=== PATIENT | female | born 1970 | race African-American/Black ===

== ENCOUNTER 2016-08-17 08:56 | Emergency (ER) | payer OTHER ==
[~2016-08-17] VITALS: Ht 152.4 cm; Wt 54.4 kg
--- NOTE | ~2016-08-17 | EKG ---
[address] [address] [place] [address] ELECTROCARDIOGRAM REPORT Name: WICHO RAMIREZ Room #: REG Tiffany#: [id number] Admission: 08/17/16 Attend Phys: Discharge: Date of : 74 Report #: [id number] THIS REPORT FOR: //name// [facility] ED Test Date: 2016-08-17 Test Time: 09:00:36 Pat Name: WICHO RAMIREZ Department: Room: Gender: F Supervisor Publications Production: CAROL : 1970 Requested By: Lin Medrano Order Number: [id number] MD: Denzel Rodriguez Measurements Intervals [place] Rate: 90 P: 73 [place]: 156 QRS: 19 QRSD: 73 T: 46 QT: 349 QTc: 427 Interpretive Statements Sinus rhythm No significant abnormality Compared to ECG 04/29/2016 21:04:14 Ventricular premature complex(es) no longer present Electronically Signed On 08-17-2016 10:24:03 ADVERTISING COPYWRITER by Denzel Rodriguez [email or web address] <ELECTRONICALLY SIGNED> By: Denzel Rodriguez MD, [facility] 08/17/16 1024 0900 9 Denzel Rodriguez MD, FACC /EPI
[~2016-08-17 08:56] MED LIST: ACCUNEB SO1.25 MG/1 INH; ADVAIR HFA 230M12 GM; ADVAIR HFA115 MCG/21; ALBUTEROL INH; AMBIEN 5 MG TABL5 M1 PO; APAP650 PO; CEFDINIR300 MG PO; CLEOCIN HCL300 MG PO; CLINDAMYCI600 MG/50 IVPB; COLACE100 MG PO; FLAGYL500 MG PO; FLUCONAZOL400 MG/205 IVPB; HYDROCODONE-AP1 EAC6 PO; HYZAAR 50-12.51 TAB; IBUPROFEN 800800 M1 PO; IRON325 PO; LEVAQUIN 500 M500 MG PO; LOPRESSOR50 PO; NORCO 5-325 TA1 EACH PO; NORVASC5 M1 PO; NORVASC5 MG PO; NYSTATIN 1100000 U/M SWISH&SPIT; PEPCID20 MG PO; PHENERGAN 25 MG25 M1 PO; PROBIOTIC1 EAC1; PROBIOTIC1 EAC1 PO; SIMETHICON CHEW80 M1 PO; SINGULAIR 10 MG10 M1 PO; SYMBICORT160 MCG/4. INH; SYMBICORT80 MCG/4.1; VENTOLIN HFA 1818 GM; WELLBUTRIN SR150 MG PO; XANAX1 MG PO
[2016-08-17 09:36] LABS: HEMATOCRIT 43.2 % (37.0-47.0); HEMOGLOBIN 14.6 gm/dL (12.0-15.0); MCH 30.8 pg (26.0-34.0); MCHC 33.9 % (28.0-37.0); MCV 90.9 fL (80.0-100.0); PLATELET COUNT 107 thou/uL (150-400); RBC 4.76 mil/uL (4.20-5.00); RDW 13.8 % (10.5-14.5); WBC 4.9 thou/uL (4.0-11.0)
[2016-08-17 09:37] LABS: MANUAL DIFF YES
[2016-08-17 09:45] LABS: CALCIUM 9.2 mg/dL (8.5-10.1); CREATININE 0.9 mg/dL (0.6-1.3); POTASSIUM 3.8 mmol/L (3.5-5.1)
[2016-08-17 09:51] LABS: ALBUMIN 3.8 g/dL (3.4-5.0); TOTAL BILIRUBIN 0.3 mg/dL (<0.1-1.0)
[2016-08-17 09:58] LABS: ABSOLUTE NEUTROPHILS 3.5 thou/uL (1.4-8.2); LARGE PLATELETS RARE; TOTAL CELL COUNT 100
[2016-08-17] MEDS ORDERED: ONDANSETRON HCL4 M2 PO (10:48)
[2016-08-17] MEDS ORDERED: BENTYL 20 MG TA20 M1 PO (10:48)
[2016-08-17] MEDS ORDERED: MIRALAX17 GM PO (10:48)
[2016-08-17 10:59] LABS: URINE BILIRUBIN NEGATIVE (Negative); URINE BLOOD NEGATIVE (Negative); URINE COLOR YELLOW; URINE GLUCOSE-RANDOM* NEGATIVE (Negative); URINE KETONES NEGATIVE (Negative); URINE NITRITE NEGATIVE (Negative); URINE PROTEIN (DIPSTICK) NEGATIVE (Negative); URINE SPECIFIC GRAVITY <= 1.005 (1.003-1.035); URINE UROBILINOGEN 0.2 E.U./dl (0.2-1.0)
== END 2016-08-17 11:32 | disposition home or self-care (01) ==
LOC: ER 08:56
PROVIDERS: Nurse Practitioner Family
DX: K59.00 Constipation, unspecified (principal); R10.33 Periumbilical pain; R10.30 Lower abdominal pain, unspecified; R10.12 Left upper quadrant pain; G89.29 Other chronic pain; J45.909 Unspecified asthma, uncomplicated; D25.9 Leiomyoma of uterus, unspecified; F17.210 Nicotine dependence, cigarettes, uncomplicated; F15.10 Other stimulant abuse, uncomplicated; Z90.710 Acquired absence of both cervix and uterus; Z88.6 Allergy status to analgesic agent; Z88.0 Allergy status to penicillin

== ENCOUNTER 2016-10-29 18:04 | Emergency (ER) | payer OTHER ==
[~2016-10-29] VITALS: Ht 165.1 cm; Wt 56.7 kg
--- NOTE | ~2016-10-29 | EKG ---
[address] [place] [place] [address] ELECTROCARDIOGRAM REPORT Name: WICHO RAMIREZ Room [facility]: [facility] [id number] Admission: 10/29/16 Attend Phys: Discharge: 10/29/16 Date of : 74 Report #: [id number] THIS REPORT FOR: //name// [facility] ED Test Date: 2016-10-29 Test Time: 18:14:59 Pat Name: WIHCO RAMIREZ Department: Room: Gender: F Gum Machine Filler: THOMAS : 1970 Requested By: Alistair Bingham Order Number: [id number] MD: Denzel Rodriguez Measurements Intervals [place] Rate: 95 P: 71 [place]: 155 QRS: 26 QRSD: 77 T: 51 QT: 338 QTc: 425 Interpretive Statements Sinus rhythm No significant abnormality Compared to ECG 08/17/2016 09:00:36 No change Electronically Signed On 10-30-2016 7:29:18 CDT by Denzel Rodriguez [email or web address] <ELECTRONICALLY SIGNED> By: Denzel Rodriguez MD, [facility] 10/30/16 0729 1814 13 Denzel Rodriguez MD, FACC /EPI
[~2016-10-29 18:04] MED LIST changes: +BENTYL 20 MG TA20 M1 PO; +MIRALAX17 GM PO; +ONDANSETRON HCL4 M2 PO
[2016-10-29] MEDS ORDERED: NAPROSYN500 MG PO (19:15)
[2016-10-29] MEDS ORDERED: REGLAN 10 MG TA10 MG PO (19:15)
== END 2016-10-29 19:57 | disposition home or self-care (01) ==
LOC: ER 18:04
DX: G44.209 Tension-type headache, unspecified, not intractable (principal); J45.909 Unspecified asthma, uncomplicated; F12.10 Cannabis abuse, uncomplicated; F17.210 Nicotine dependence, cigarettes, uncomplicated; Z90.710 Acquired absence of both cervix and uterus; Z85.42 Personal history of malignant neoplasm of other parts of uterus; Z88.0 Allergy status to penicillin; Z88.6 Allergy status to analgesic agent

== ENCOUNTER 2016-11-27 15:40 | Emergency (ER) | payer OTHER ==
[~2016-11-27] VITALS: Ht 152.4 cm; Wt 56.7 kg
[~2016-11-27 15:40] MED LIST changes: +NAPROSYN500 MG PO; +REGLAN 10 MG TA10 MG PO
[2016-11-27 16:01] LABS: URINE BILIRUBIN NEGATIVE (Negative); URINE BLOOD NEGATIVE (Negative); URINE COLOR YELLOW; URINE GLUCOSE-RANDOM* NEGATIVE (Negative); URINE KETONES NEGATIVE (Negative); URINE NITRITE NEGATIVE (Negative); URINE PROTEIN (DIPSTICK) NEGATIVE (Negative); URINE UROBILINOGEN 0.2 E.U./dl (0.2-1.0)
[2016-11-27] MEDS ORDERED: LISINOPRIL10 MG PO (16:19)
[2016-11-27 16:20] LABS: ABSOLUTE NEUTROPHILS 3.1 thou/uL (1.4-8.2); BASOPHILS 0.9 % (0.0-2.0); EOSINOPHILS 1.2 % (0.0-3.0); HEMATOCRIT 41.3 % (37.0-47.0); HEMOGLOBIN 13.9 gm/dL (12.0-15.0); LYMPHOCYTES 31.9 % (24.0-44.0); MANUAL DIFF NO; MCH 30.7 pg (26.0-34.0); MCHC 33.7 g/dL (28.0-37.0); MCV 90.9 fL (80.0-100.0); MONOCYTES 7.4 % (1.0-8.0); PLATELET COUNT 134 thou/uL (150-400); POLYS 58.6 % (36.0-66.0); RBC 4.54 mil/uL (4.20-5.00); RDW 13.9 % (10.5-14.5); WBC 5.4 thou/uL (4.0-11.0)
[2016-11-27] MEDS ORDERED: LISINOPRIL-HCT1 EAC2 PO (16:20)
[2016-11-27] MEDS ORDERED: PHENERGAN 25 MG25 M1 PO ×2 (16:20→17:15)
[2016-11-27] MEDS ORDERED: ADVAIR HFA 230M12 GM INH (16:21)
[2016-11-27 16:25] LABS: CALCIUM 9.8 mg/dL (8.5-10.1); POTASSIUM 4.1 mmol/L (3.5-5.1)
[2016-11-27] MEDS ORDERED: FLAGYL500 MG PO (17:06)
[2016-11-27] MEDS ORDERED: NORVASC2.5 MG PO (17:06)
[2016-11-30 15:09] LABS: CHLAMYDIA TRACHOMATIS-PCR Negative (Negative); NEISSERIA GONORRHEA-PCR Negative (Negative)
== END 2016-11-27 17:31 | disposition home or self-care (01) ==
LOC: ER 15:40
PROVIDERS: Physician Assistant
DX: N76.0 Acute vaginitis (principal); I10 Essential (primary) hypertension; J45.909 Unspecified asthma, uncomplicated; F17.210 Nicotine dependence, cigarettes, uncomplicated; Z85.42 Personal history of malignant neoplasm of other parts of uterus; Z90.710 Acquired absence of both cervix and uterus; Z88.6 Allergy status to analgesic agent; Z88.0 Allergy status to penicillin

== ENCOUNTER 2017-03-31 17:46 | Emergency (ER) | payer OTHER ==
[~2017-03-31] VITALS: Ht 152.4 cm; Wt 52.2 kg
[~2017-03-31 17:46] MED LIST changes: +ADVAIR HFA 230M12 GM INH; +LISINOPRIL-HCT1 EAC2 PO; +LISINOPRIL10 MG PO; +NORVASC2.5 MG PO
== END 2017-03-31 19:05 | disposition home or self-care (01) ==
LOC: ER 17:46
DX: M79.661 Pain in right lower leg (principal); J45.909 Unspecified asthma, uncomplicated; F17.210 Nicotine dependence, cigarettes, uncomplicated; F10.99 Alcohol use, unspecified with unspecified alcohol-induced disorder; Z90.710 Acquired absence of both cervix and uterus; Z88.0 Allergy status to penicillin; Z88.6 Allergy status to analgesic agent

== ENCOUNTER 2017-04-10 18:32 | Emergency (ER) | payer OTHER ==
[~2017-04-10] VITALS: Ht 152.4 cm; Wt 56.7 kg
[2017-04-10] MEDS ORDERED: HYZAAR 50-12.51 EACH PO (19:42)
[2017-04-10] MEDS ORDERED: PREDNISONE 20 M20 MG PO (20:23)
[2017-04-10] MEDS ORDERED: BUTALB-APAP-CA1 EACH PO (20:23)
== END 2017-04-10 21:00 | disposition home or self-care (01) ==
LOC: ER 18:32
DX: M26.623 Arthralgia of bilateral temporomandibular joint (principal); G44.209 Tension-type headache, unspecified, not intractable; J45.909 Unspecified asthma, uncomplicated; F17.210 Nicotine dependence, cigarettes, uncomplicated; F10.99 Alcohol use, unspecified with unspecified alcohol-induced disorder; Z90.710 Acquired absence of both cervix and uterus; Z88.0 Allergy status to penicillin; Z88.6 Allergy status to analgesic agent

== ENCOUNTER 2017-06-03 16:01 | Emergency (ER) | payer OTHER ==
[~2017-06-03] VITALS: Ht 152.4 cm; Wt 54.4 kg
[~2017-06-03 16:01] MED LIST changes: +BUTALB-APAP-CA1 EACH PO; +HYZAAR 50-12.51 EACH PO; +PREDNISONE 20 M20 MG PO; +VALIUM5 MG PO
[2017-06-03] MEDS ORDERED: ULTRAM 50MG TAB50 MG PO (18:10)
[2017-06-03] MEDS ORDERED: TIZANIDINE HCL4 MG PO (18:10)
[2017-06-03] MEDS ORDERED: BACTROBAN CREAM30 G1 TOP (18:15)
== END 2017-06-03 18:31 | disposition home or self-care (01) ==
LOC: ER 16:01
DX: S00.83XA Contusion of other part of head, initial encounter (principal); L73.9 Follicular disorder, unspecified; J45.909 Unspecified asthma, uncomplicated; F41.9 Anxiety disorder, unspecified; I10 Essential (primary) hypertension; E05.90 Thyrotoxicosis, unspecified without thyrotoxic crisis or storm; F17.210 Nicotine dependence, cigarettes, uncomplicated; F10.99 Alcohol use, unspecified with unspecified alcohol-induced disorder; Z90.710 Acquired absence of both cervix and uterus; Z88.6 Allergy status to analgesic agent; Z88.0 Allergy status to penicillin; Y93.I9 Activity, other involving external motion; V43.52XA Car driver injured in collision with other type car in traffic accident, initial encounter; Y92.488 Other paved roadways as the place of occurrence of the external cause; Y99.8 Other external cause status

== ENCOUNTER 2017-06-09 01:09 | Emergency (ER) | payer OTHER ==
[~2017-06-09] VITALS: Ht 162.6 cm; Wt 63.5 kg
[~2017-06-09 01:09] MED LIST changes: +BACTROBAN CREAM30 G1 TOP; +TIZANIDINE HCL4 MG PO; +ULTRAM 50MG TAB50 MG PO
[2017-06-09 02:48] LABS: ABSOLUTE NEUTROPHILS 3.2 thou/uL (1.4-8.2); BASOPHILS 0.8 % (0.0-2.0); EOSINOPHILS 1.7 % (0.0-3.0); HEMATOCRIT 42.8 % (37.0-47.0); HEMOGLOBIN 14.2 gm/dL (12.0-15.0); LYMPHOCYTES 34.4 % (24.0-44.0); MCH 30.6 pg (26.0-34.0); MCHC 33.1 g/dL (28.0-37.0); MCV 92.4 fL (80.0-100.0); MONOCYTES 10.6 % (1.0-8.0); PLATELET COUNT 126 thou/uL (150-400); POLYS 52.5 % (36.0-66.0); RBC 4.63 mil/uL (4.20-5.00); RDW 13.7 % (10.5-14.5); WBC 6.1 thou/uL (4.0-11.0)
[2017-06-09 02:56] LABS: CALCIUM 9.9 mg/dL (8.5-10.1); CREATININE 0.8 mg/dL (0.6-1.0); POTASSIUM 4.4 mmol/L (3.5-5.1)
[2017-06-09 03:02] LABS: ALBUMIN 3.6 g/dL (3.4-5.0); TOTAL BILIRUBIN 0.4 mg/dL (<0.1-1.0); TOTAL PROTEIN 7.3 g/dL (6.4-8.2)
[2017-06-09 03:06] LABS: MANUAL DIFF NO
[2017-06-09] MEDS ORDERED: ZOFRAN ODT4 MG PO (05:08)
[2017-06-09 05:20] LABS: URINE BILIRUBIN NEGATIVE (Negative); URINE BLOOD NEGATIVE (Negative); URINE COLOR YELLOW; URINE GLUCOSE-RANDOM* NEGATIVE (Negative); URINE KETONES NEGATIVE (Negative); URINE LEUKOCYTES-REFLEX NEGATIVE (Negative); URINE PROTEIN (DIPSTICK) NEGATIVE (Negative); URINE UROBILINOGEN 0.2 E.U./dl (0.2-1.0)
== END 2017-06-09 05:58 | disposition home or self-care (01) ==
LOC: ER 01:09
PROVIDERS: Emergency Medicine
DX: R11.2 Nausea with vomiting, unspecified (principal); J45.909 Unspecified asthma, uncomplicated; D25.9 Leiomyoma of uterus, unspecified; F41.9 Anxiety disorder, unspecified; I10 Essential (primary) hypertension; F10.99 Alcohol use, unspecified with unspecified alcohol-induced disorder; F17.210 Nicotine dependence, cigarettes, uncomplicated; E03.9 Hypothyroidism, unspecified; Z90.710 Acquired absence of both cervix and uterus; Z88.0 Allergy status to penicillin; Z88.6 Allergy status to analgesic agent

== ENCOUNTER 2017-08-12 18:55 | Emergency (ER) | payer OTHER ==
[~2017-08-12 18:55] MED LIST changes: +GOLYTELY4000 ML PO; +LEVSIN0.125 MG PO; -VENTOLIN HFA 1818 GM; +VENTOLIN HFA 1818 GM INH; +ZOFRAN ODT4 MG PO
[2017-08-12 19:40] VITALS: BP 127/89
[2018-01-01] MEDS ORDERED: PREDNISONE 20 M20 MG PO (10:36)
== END 2017-08-12 20:56 | disposition left against medical advice (07) ==
LOC: ER 18:55
DX: Z53.21 Procedure and treatment not carried out due to patient leaving prior to being seen by health care provider (principal)

== ENCOUNTER 2017-09-01 23:37 | Emergency (ER) | payer OTHER ==
[~2017-09-01] VITALS: Ht 152.4 cm; Wt 56.7 kg
[2017-09-02] MEDS ORDERED: ULTRAM 50MG TAB50 MG PO (00:27)
[2017-09-02] MEDS ORDERED: NAPROSYN500 MG PO (00:27)
[2017-09-02 00:28] LABS: AMP/METHAMP Negative (Negative); BARBITURATES Negative (Negative); BENZODIAZEPINES POSITIVE (Negative); COCAINE Negative (Negative); METHADONE Negative (Negative); OPIATES Negative (Negative); PCP Negative (Negative)
[2017-09-02 01:06] VITALS: BP 139/101
[2018-01-01] MEDS ORDERED: PREDNISONE 20 M20 MG PO (10:36)
== END 2017-09-02 01:07 | disposition home or self-care (01) ==
LOC: ER 23:37
PROVIDERS: Emergency Medicine
DX: M25.532 Pain in left wrist (principal); J45.909 Unspecified asthma, uncomplicated; I10 Essential (primary) hypertension; E03.9 Hypothyroidism, unspecified; G47.00 Insomnia, unspecified; F41.9 Anxiety disorder, unspecified; F17.210 Nicotine dependence, cigarettes, uncomplicated; Z90.710 Acquired absence of both cervix and uterus

== ENCOUNTER 2017-09-20 17:58 | Emergency (ER) | payer OTHER ==
[~2017-09-20] VITALS: Ht 152.4 cm; Wt 52.2 kg
--- NOTE | ~2017-09-20 | EKG ---
[address] [address] [place] [address] ELECTROCARDIOGRAM REPORT Name: WICHO RAMIREZ Room #: [place]#: [id number] Admission: 09/20/17 Attend Phys: Discharge: 09/20/17 Date of : 74 Report #: [id number] THIS REPORT FOR: //name// [facility] ED Test Date: 2017-09-20 Test Time: 18:14:10 Pat Name: WICHO RAMIREZ Department: Room: Gender: F Fan Blade Aligner: ELISE : 1970 Requested By: Marie Reid Order Number: [id number] MD: Denzel Rodriguez Measurements Intervals [place] Rate: 76 P: 60 [place]: 156 QRS: 25 QRSD: 79 T: 53 QT: 356 QTc: 401 Interpretive Statements Sinus rhythm ST elev, probable normal early repol pattern Compared to ECG 03/15/2017 19:48:55 No significant changes Electronically Signed On 09-21-2017 7:53:47 [employer]NAGER [employer]OL by Denzel Rodriguez [email or web address] <ELECTRONICALLY SIGNED> By: Denzel Rodriguez MD, [facility] 09/21/17 0753 1814 13 Denzel Rodriguez MD, FACC /EPI
[2017-09-20 18:30] LABS: HEMOGLOBIN 15.4 gm/dL (12.0-15.0); MCH 31.4 pg (26.0-34.0); MCHC 34.1 g/dL (28.0-37.0); RBC 4.89 mil/uL (4.20-5.00); RDW 13.5 % (10.5-14.5); WBC 6.9 thou/uL (4.0-11.0)
[2017-09-20 18:40] LABS: ANION GAP 11 mmol/L (7-16); BUN 18 mg/dL (7-18); CALCIUM 10.7 mg/dL (8.5-10.1); CHLORIDE 100 mmol/L (98-107); CO2 25 mmol/L (21-32); CREATININE 1.2 mg/dL (0.6-1.0); GLUCOSE 88 mg/dL (74-106); POTASSIUM 3.6 mmol/L (3.5-5.1); SODIUM 136 mmol/L (136-145)
[2017-09-20 18:49] LABS: TROPONIN-I < 0.04 ng/mL (<0.06)
[2017-09-20 19:03] LABS: ABSOLUTE NEUTROPHILS 3.7 thou/uL (1.4-8.2); LARGE PLATELETS RARE; PLATELET COUNT 130 thou/uL (150-400)
[2017-09-20 19:38] LABS: URINE BILIRUBIN NEGATIVE (Negative); URINE BLOOD NEGATIVE (Negative); URINE CLARITY CLEAR; URINE COLOR YELLOW; URINE GLUCOSE-RANDOM* NEGATIVE (Negative); URINE KETONES 1+ (Negative); URINE LEUKOCYTES NEGATIVE (Negative); URINE NITRITE NEGATIVE (Negative); URINE PROTEIN (DIPSTICK) NEGATIVE (Negative); URINE SPECIFIC GRAVITY >= 1.030 (1.005-1.035); URINE UROBILINOGEN 0.2 E.U./dl (0.2-1.0)
[2017-09-20] MEDS ORDERED: MOBIC7.5 MG PO (20:37)
[2017-09-20] MEDS ORDERED: PHENERGAN 25 MG25 M1 PO (20:37)
[2017-09-20] MEDS ORDERED: BENTYL 20 MG TA20 M1 PO (20:37)
[2017-09-20 20:54] VITALS: BP 119/79
[2018-01-01] MEDS ORDERED: PREDNISONE 20 M20 MG PO (10:36)
== END 2017-09-20 20:54 | disposition home or self-care (01) ==
LOC: ER 17:58
PROVIDERS: Physician Assistant
DX: R07.89 Other chest pain (principal); R10.9 Unspecified abdominal pain; R11.0 Nausea; J45.909 Unspecified asthma, uncomplicated; F41.9 Anxiety disorder, unspecified; I10 Essential (primary) hypertension; Z90.710 Acquired absence of both cervix and uterus; F17.210 Nicotine dependence, cigarettes, uncomplicated; Z88.0 Allergy status to penicillin; Z88.6 Allergy status to analgesic agent

== ENCOUNTER 2017-10-10 01:33 | Emergency (ER) | payer OTHER ==
[~2017-10-10] VITALS: Ht 165.1 cm; Wt 54.4 kg
[~2017-10-10 01:33] MED LIST changes: +MOBIC7.5 MG PO
[2017-10-10 02:08] VITALS: BP 138/63
[2018-01-01] MEDS ORDERED: PREDNISONE 20 M20 MG PO (10:36)
== END 2017-10-10 02:22 | disposition home or self-care (01) ==
LOC: ER 01:33
DX: M54.2 Cervicalgia (principal); J45.909 Unspecified asthma, uncomplicated; I10 Essential (primary) hypertension; E03.9 Hypothyroidism, unspecified; G47.00 Insomnia, unspecified

== ENCOUNTER 2017-12-01 15:01 | Emergency (ER) | payer OTHER ==
[~2017-12-01] VITALS: Ht 149.9 cm; Wt 47.6 kg
[~2017-12-01 15:01] MED LIST changes: +VENTOLIN HFA 1818 GM; -VENTOLIN HFA 1818 GM INH
[2017-12-01] MEDS ORDERED: PROMETHAZINE/C118 ML PO (15:12)
[2017-12-01] MEDS ORDERED: TRAMADOL 50 MG50 MG PO (15:41)
== END 2017-12-01 16:12 | disposition home or self-care (01) ==
LOC: ER 15:01
DX: M65.4 Radial styloid tenosynovitis [de Quervain] (principal); J45.909 Unspecified asthma, uncomplicated; F41.9 Anxiety disorder, unspecified; I10 Essential (primary) hypertension; E03.9 Hypothyroidism, unspecified; Z88.0 Allergy status to penicillin; Z88.6 Allergy status to analgesic agent

== ENCOUNTER 2018-01-06 16:06 | Inpatient (IN) | payer OTHER ==
[~2018-01-06] VITALS: Ht 152.4 cm; Wt 45.4 kg
--- NOTE | ~2018-01-06 | EKG ---
[place] [address] [facility] [place] [address] ELECTROCARDIOGRAM REPORT Name: WICHO RAMIREZ Room #: 409-P [facility] IN .R.#: [id number] Admission: 01/06/18 Attend Phys: [place] Discharge: Date of : 74 Report #: [id number] THIS REPORT FOR: //name// [facility] ED Test Date: 2018-01-06 Test Time: 16:20:02 Pat Name: WICHO RAMIREZ Department: Room: Gender: F Coffee Maker Servicer: MONTEZ : 1970 Requested By: Shaun Arauz Order Number: [id number] MD: Denzel Rodriguez Measurements Intervals [place] Rate: 65 P: 68 [place]: 156 QRS: 53 QRSD: 79 T: 61 QT: 408 QTc: 425 Interpretive Statements Sinus rhythm No significant abnormality Compared to ECG 01/01/2018 09:55:52 No significant change was found Electronically Signed On 01-07-2018 7:44:59 CDT by Denzel Rodriguez [email or web address] <ELECTRONICALLY SIGNED> By: Denzel Rodriguez MD, [facility] 01/07/18 0744 D: [id number] 19 Denzel Rodriguez MD, FACC /EPI
[~2018-01-06 16:06] MED LIST changes: +PROMETHAZINE/C118 ML PO; +TRAMADOL 50 MG50 MG PO
[2018-01-06 16:07] VITALS: BP 93/77
[2018-01-06 16:29] LABS: ABSOLUTE NEUTROPHILS 2.4 thou/uL (1.4-8.2); BASOPHILS 0.5 % (0.0-2.0); EOSINOPHILS 1.3 % (0.0-3.0); HEMATOCRIT 48.2 % (37.0-47.0); HEMOGLOBIN 16.3 gm/dL (12.0-15.0); LYMPHOCYTES 48.2 % (24.0-44.0); MCH 31.8 pg (26.0-34.0); MCHC 33.9 g/dL (28.0-37.0); MCV 93.9 fL (80.0-100.0); MONOCYTES 8.7 % (1.0-8.0); POLYS 41.3 % (36.0-66.0); RBC 5.14 mil/uL (4.20-5.00); RDW 13.5 % (10.5-14.5); WBC 5.9 thou/uL (4.0-11.0)
[2018-01-06 16:40] LABS: ANION GAP 11 mmol/L (7-16); BUN 13 mg/dL (7-18); CALCIUM 10.6 mg/dL (8.5-10.1); CHLORIDE 98 mmol/L (98-107); CO2 25 mmol/L (21-32); CREATININE 1.1 mg/dL (0.6-1.0); GLUCOSE 92 mg/dL (74-106); POTASSIUM 3.6 mmol/L (3.5-5.1); SODIUM 134 mmol/L (136-145)
[2018-01-06 16:45] LABS: MAGNESIUM 1.9 mg/dL (1.8-2.4)
[2018-01-06 16:50] LABS: ALBUMIN 4.2 g/dL (3.4-5.0); SGOT 20 U/L (15-37); SGPT 19 U/L (30-65); TOTAL BILIRUBIN 0.6 mg/dL (<0.1-1.0); TOTAL PROTEIN 8.5 g/dL (6.4-8.2); TROPONIN-I < 0.04 ng/mL (<0.06)
[2018-01-06 16:59] LABS: LARGE PLATELETS SEVERAL; PLATELET COUNT 145 thou/uL (150-400)
[2018-01-06 19:45] LABS: URINE BILIRUBIN NEGATIVE (Negative); URINE BLOOD NEGATIVE (Negative); URINE CLARITY CLEAR; URINE COLOR YELLOW; URINE GLUCOSE-RANDOM* NEGATIVE (Negative); URINE KETONES TRACE (Negative); URINE LEUKOCYTES-REFLEX NEGATIVE (Negative); URINE NITRITE-REFLEX NEGATIVE (Negative); URINE PROTEIN (DIPSTICK) NEGATIVE (Negative)
[2018-01-06 21:00] VITALS: BP 117/73
[2018-01-06 21:24] VITALS: BP 128/72
[2018-01-07 04:50] VITALS: BP 117/85
[2018-01-07 07:34] VITALS: BP 126/83
[2018-01-07] MEDS ORDERED: ANTIVERT25 MG PO (15:43)
[2018-01-07 16:02] VITALS: BP 126/83
== END 2018-01-07 17:00 | disposition home or self-care (01) | DRG 149 ==
LOC: ER 16:06 → EROBS 20:18 → 4N 20:18 → ENTRNSPT 01-07 16:08 → 4N 01-07 17:00
PROVIDERS: Physician Assistant
DX: H83.09 Labyrinthitis, unspecified ear (principal); J45.909 Unspecified asthma, uncomplicated; F41.9 Anxiety disorder, unspecified; R06.4 Hyperventilation; M32.9 Systemic lupus erythematosus, unspecified; G47.00 Insomnia, unspecified; I10 Essential (primary) hypertension; E03.9 Hypothyroidism, unspecified; Z88.6 Allergy status to analgesic agent; Z88.0 Allergy status to penicillin; Z88.8 Allergy status to other drugs, medicaments and biological substances; Z90.710 Acquired absence of both cervix and uterus; Z79.899 Other long term (current) drug therapy
CPT/HCPCS: 10091

== ENCOUNTER 2018-02-13 20:57 | Emergency (ER) | payer OTHER ==
[~2018-02-13] VITALS: Ht 152.4 cm; Wt 54.4 kg
--- NOTE | ~2018-02-13 | EKG ---
[place] [address] [address] [facility] [place] [address] ELECTROCARDIOGRAM REPORT Name: MARSHA RAMIREZNARAYAN Murguia Room #: [facility] [id number] Admission: 02/13/18 Attend Phys: Discharge: 02/14/18 Date of : 74 Report #: [id number] THIS REPORT FOR: //name// [facility] ED Test Date: 2018-02-13 Test Time: 21:25:58 Pat Name: WICHO RAMIREZ Department: Room: Gender: F Associate Buyer: KKODJOVI : 1970 Requested By: Adonis Zafar Order Number: [id number] MD: Denzel Rodriguez Measurements Intervals [place] Rate: 64 P: 50 [place]: 172 QRS: 42 QRSD: 83 T: 58 QT: 394 QTc: 407 Interpretive Statements Sinus rhythm Normal tracing Compared to ECG 01/06/2018 16:20:02 No significant change was found Electronically Signed On 02-14-2018 7:52:50 CDT by Denzel Rodriguez [email or web address] <ELECTRONICALLY SIGNED> By: Denzel Rodriguez MD, [facility] 02/14/18 0752 2125 24 Denzel Rodriguez MD, FACC /EPI
[~2018-02-13 20:57] MED LIST changes: +ANTIVERT25 MG PO; -VENTOLIN HFA 1818 GM; +VENTOLIN HFA 1818 GM INH
[2018-02-13 21:29] LABS: ABSOLUTE NEUTROPHILS 4.1 thou/uL (1.4-8.2); BASOPHILS 1.1 % (0.0-2.0); HEMATOCRIT 39.1 % (37.0-47.0); HEMOGLOBIN 13.1 gm/dL (12.0-15.0); LYMPHOCYTES 32.7 % (24.0-44.0); MCH 31.4 pg (26.0-34.0); MCHC 33.5 g/dL (28.0-37.0); MCV 93.6 fL (80.0-100.0); MONOCYTES 8.5 % (1.0-8.0); POLYS 56.7 % (36.0-66.0); RBC 4.18 mil/uL (4.20-5.00); RDW 13.6 % (10.5-14.5); WBC 7.2 thou/uL (4.0-11.0)
[2018-02-13 21:44] LABS: ANION GAP 8 mmol/L (7-16); BUN 11 mg/dL (7-18); CALCIUM 9.6 mg/dL (8.5-10.1); CHLORIDE 106 mmol/L (98-107); CO2 27 mmol/L (21-32); GLUCOSE 96 mg/dL (74-106); POTASSIUM 3.5 mmol/L (3.5-5.1); SODIUM 141 mmol/L (136-145)
[2018-02-13 21:54] LABS: TROPONIN-I <0.06 ng/mL (<0.06)
[2018-02-13 22:17] LABS: LARGE PLATELETS OCCASIONAL; PLATELET COUNT 120 thou/uL (150-400)
[2018-02-13] MEDS ORDERED: PROMETHAZI6.25 MG/5 PO (22:21)
[2018-02-13] MEDS ORDERED: SINGULAIR 10 MG10 M1 PO (22:21)
[2018-02-13] MEDS ORDERED: EFFEXOR XR37.5 MG PO (22:22)
[2018-02-13] MEDS ORDERED: BUTALB-APAP-CA1 EACH PO (23:12)
[2018-02-13] MEDS ORDERED: VALIUM2 MG PO (23:12)
== END 2018-02-14 01:37 | disposition home or self-care (01) ==
LOC: ER 20:57
PROVIDERS: Physician Assistant
DX: G44.209 Tension-type headache, unspecified, not intractable (principal); R42 Dizziness and giddiness; M43.6 Torticollis; R20.2 Paresthesia of skin; J45.909 Unspecified asthma, uncomplicated; F41.9 Anxiety disorder, unspecified; I10 Essential (primary) hypertension; G47.00 Insomnia, unspecified; E05.90 Thyrotoxicosis, unspecified without thyrotoxic crisis or storm; Z90.710 Acquired absence of both cervix and uterus; Z88.0 Allergy status to penicillin; Z88.6 Allergy status to analgesic agent; Z91.013 Allergy to seafood

== ENCOUNTER 2018-07-19 23:31 | Emergency (ER) | payer OTHER ==
[~2018-07-19] VITALS: Ht 152.4 cm; Wt 52.2 kg
--- NOTE | ~2018-07-19 | EKG ---
[address] [place] [address] ELECTROCARDIOGRAM REPORT Name: WICHO RAMIREZ [facility] [id number] Admission: 07/19/18 Attend Phys: Discharge: 07/20/18 Date of : 74 Report #: [id number] THIS REPORT FOR: //name// [facility] ED Test Date: 2018-07-19 Test Time: 23:49:33 Pat Name: WICHO RAMIREZ Department: Room: Gender: F Payment Specialist: Marla PADGETT : 1970 Requested By: Luis Daniel Ragsdale Order Number: [id number] MD: Moody Gil Measurements Intervals [place] Rate: 72 P: 74 [place]: 174 QRS: 37 QRSD: 150 T: 55 QT: 373 QTc: 409 Interpretive Statements Sinus rhythm Probable left ventricular hypertrophy Compared to ECG 02/13/2018 21:25:58 No significant changes Electronically Signed On 07-20-2018 8:20:06 MACHINE LOADER by Moody Gil [email or web address] <ELECTRONICALLY SIGNED> By: Moody Gil MD 07/20/18 0820 2349 2349 Moody Gil MD /MCKENZIE
[~2018-07-19 23:31] MED LIST changes: +EFFEXOR XR37.5 MG PO; +PROMETHAZI6.25 MG/5 PO; +VALIUM2 MG PO
[2018-07-20] LABS: ABSOLUTE NEUTROPHILS 2.4 thou/uL (1.4-8.2); BASOPHILS 0.8 % (0.0-2.0); HEMATOCRIT 41.4 % (37.0-47.0); HEMOGLOBIN 13.9 gm/dL (12.0-15.0); LYMPHOCYTES 52.5 % (24.0-44.0); MCHC 33.7 g/dL (28.0-37.0); MCV 91.9 fL (80.0-100.0); MONOCYTES 9.2 % (1.0-8.0); PLATELET COUNT 117 thou/uL (150-400); POLYS 35.5 % (36.0-66.0); RDW 13.6 % (10.5-14.5); WBC 6.7 thou/uL (4.0-11.0)
[2018-07-20 00:16] LABS: ANION GAP 12 mmol/L (7-16); BUN 10 mg/dL (7-18); CALCIUM 10.6 mg/dL (8.5-10.1); CHLORIDE 105 mmol/L (98-107); CO2 23 mmol/L (21-32); CREATININE 1.1 mg/dL (0.6-1.0); GLUCOSE 114 mg/dL (74-106); POTASSIUM 3.6 mmol/L (3.5-5.1); SODIUM 140 mmol/L (136-145)
[2018-07-20 00:25] LABS: ALBUMIN 3.9 g/dL (3.4-5.0); MAGNESIUM 1.8 mg/dL (1.8-2.4); SGOT 14 U/L (15-37); SGPT 17 U/L (30-65); TOTAL BILIRUBIN 0.2 mg/dL (<0.1-1.0); TOTAL PROTEIN 7.9 g/dL (6.4-8.2); TROPONIN-I <0.06 ng/mL (<0.06)
[2018-07-20] MEDS ORDERED: TRAMADOL 50 MG50 MG PO (00:40)
[2018-07-20] MEDS ORDERED: IBU600 MG PO (00:40)
[2018-07-20] MEDS ORDERED: VENTOLIN HFA 1818 GM INH (00:40)
[2018-07-20 01:21] VITALS: BP 162/96
== END 2018-07-20 01:21 | disposition home or self-care (01) ==
LOC: ER 23:31
PROVIDERS: Emergency Medicine
DX: S20.212A Contusion of left front wall of thorax, initial encounter (principal); J45.909 Unspecified asthma, uncomplicated; F41.9 Anxiety disorder, unspecified; I10 Essential (primary) hypertension; G47.00 Insomnia, unspecified; Z90.710 Acquired absence of both cervix and uterus; Y04.8XXA Assault by other bodily force, initial encounter; Y93.89 Activity, other specified; Y92.89 Other specified places as the place of occurrence of the external cause; Y99.8 Other external cause status

== ENCOUNTER 2018-10-19 20:41 | Emergency (ER) | payer OTHER ==
[~2018-10-19] VITALS: Ht 152.4 cm; Wt 56.7 kg
[~2018-10-19 20:41] MED LIST changes: +IBU600 MG PO
[2018-10-19 23:23] VITALS: BP 124/79
== END 2018-10-19 23:24 | disposition home or self-care (01) ==
LOC: ER 20:41
DX: R51 Headache (principal); I10 Essential (primary) hypertension; M25.512 Pain in left shoulder; J45.909 Unspecified asthma, uncomplicated; F41.9 Anxiety disorder, unspecified; G47.00 Insomnia, unspecified; E05.90 Thyrotoxicosis, unspecified without thyrotoxic crisis or storm; Z90.710 Acquired absence of both cervix and uterus; F17.210 Nicotine dependence, cigarettes, uncomplicated; Z88.0 Allergy status to penicillin; Z88.6 Allergy status to analgesic agent; Z91.013 Allergy to seafood

== ENCOUNTER 2019-03-04 13:55 | Emergency (ER) | payer OTHER ==
[~2019-03-04] VITALS: Ht 152.4 cm; Wt 57.1 kg
[2019-03-04 14:54] LABS: ABSOLUTE NEUTROPHILS 2.1 thou/uL (1.4-8.2); EOSINOPHILS 1.4 % (0.0-3.0); HEMATOCRIT 39.9 % (37.0-47.0); HEMOGLOBIN 13.2 gm/dL (12.0-15.0); LYMPHOCYTES 48.9 % (24.0-44.0); MCH 30.8 pg (26.0-34.0); MCHC 33.2 g/dL (28.0-37.0); MCV 92.9 fL (80.0-100.0); MONOCYTES 10.5 % (1.0-8.0); POLYS 38.2 % (36.0-66.0); RBC 4.29 mil/uL (4.20-5.00); RDW 13.8 % (10.5-14.5); WBC 5.4 thou/uL (4.0-11.0)
[2019-03-04 15:04] LABS: CALCIUM 10.1 mg/dL (8.5-10.1); CREATININE 0.9 mg/dL (0.6-1.0); POTASSIUM 3.8 mmol/L (3.5-5.1)
[2019-03-04 15:10] LABS: TOTAL BILIRUBIN 0.4 mg/dL (<0.1-1.0); TOTAL PROTEIN 7.8 g/dL (6.4-8.2)
[2019-03-04] MEDS ORDERED: DOXYCYCLINE 10100 MG PO (15:45)
[2019-03-04] MEDS ORDERED: METRONIDAZOLE250 MG PO (15:45)
[2019-03-04] MEDS ORDERED: NEURONTIN600 MG PO (15:46)
[2019-03-04] MEDS ORDERED: PROTONIX40 M1 PO (15:46)
[2019-03-04 15:47] LABS: LARGE PLATELETS SEVERAL; PLATELET COUNT 106 thou/uL (150-400)
[2019-03-04 15:51] LABS: URINE BILIRUBIN NEGATIVE (Negative); URINE BLOOD NEGATIVE (Negative); URINE CLARITY CLEAR; URINE COLOR YELLOW; URINE GLUCOSE-RANDOM* NEGATIVE (Negative); URINE KETONES NEGATIVE (Negative); URINE LEUKOCYTES-REFLEX NEGATIVE (Negative); URINE NITRITE-REFLEX NEGATIVE (Negative); URINE PROTEIN (DIPSTICK) TRACE (Negative); URINE SPECIFIC GRAVITY >= 1.030 (1.005-1.035); URINE UROBILINOGEN 0.2 E.U./dl (0.2-1.0)
[2019-03-04] MEDS ORDERED: ZOFRAN ODT4 MG PO (16:12)
[2019-03-04] MEDS ORDERED: PHENERGAN25 M1 RECTAL (16:12)
[2019-03-04 16:38] VITALS: BP 151/93
== END 2019-03-04 16:40 | disposition home or self-care (01) ==
LOC: ER 13:55
PROVIDERS: Emergency Medicine
DX: R11.2 Nausea with vomiting, unspecified (principal); R10.12 Left upper quadrant pain; I10 Essential (primary) hypertension; D25.9 Leiomyoma of uterus, unspecified; F41.9 Anxiety disorder, unspecified; G47.00 Insomnia, unspecified; E05.90 Thyrotoxicosis, unspecified without thyrotoxic crisis or storm; J45.909 Unspecified asthma, uncomplicated; F17.210 Nicotine dependence, cigarettes, uncomplicated; Z90.710 Acquired absence of both cervix and uterus; Z88.0 Allergy status to penicillin; Z91.013 Allergy to seafood; Z88.6 Allergy status to analgesic agent

== ENCOUNTER 2019-04-11 14:36 | Emergency (ER) | payer OTHER ==
[~2019-04-11] VITALS: Ht 152.4 cm; Wt 56.7 kg
[~2019-04-11 14:36] MED LIST changes: +DOXYCYCLINE 10100 MG PO; +METRONIDAZOLE250 MG PO; +NEURONTIN600 MG PO; +PHENERGAN25 M1 RECTAL; +PROTONIX40 M1 PO
[2019-04-11] MEDS ORDERED: NORCO 10-325 T1 EACH PO (16:12)
[2019-04-11] MEDS ORDERED: LIDOCAINE PAIN1 EACH TRANSDERM (16:14)
[2019-04-11 16:52] VITALS: BP 161/95
== END 2019-04-11 16:53 | disposition home or self-care (01) ==
LOC: ER 14:36
DX: M79.602 Pain in left arm (principal); J45.909 Unspecified asthma, uncomplicated; F41.9 Anxiety disorder, unspecified; I10 Essential (primary) hypertension; F17.210 Nicotine dependence, cigarettes, uncomplicated; Z98.51 Tubal ligation status; Z86.2 Personal history of diseases of the blood and blood-forming organs and certain disorders involving the immune mechanism; Z90.710 Acquired absence of both cervix and uterus; Z88.0 Allergy status to penicillin; Z88.6 Allergy status to analgesic agent; Z91.013 Allergy to seafood

== ENCOUNTER 2019-12-07 04:36 | Emergency (ER) | payer OTHER ==
[~2019-12-07] VITALS: Ht 152.4 cm; Wt 59.0 kg
[~2019-12-07 04:36] MED LIST changes: +LIDOCAINE PAIN1 EACH TRANSDERM; +NORCO 10-325 T1 EACH PO
[2019-12-07] MEDS ORDERED: AMBIEN 10 MG TA10 MG PO (05:36)
[2019-12-07] MEDS ORDERED: OXYCODONE PO (05:37)
[2019-12-07] MEDS ORDERED: VISTARIL 25 MG25 M1 PO (05:37)
[2019-12-07 05:39] LABS: CALCIUM 9.4 mg/dL (8.5-10.1); CREATININE 0.9 mg/dL (0.6-1.0); POTASSIUM 4.8 mmol/L (3.5-5.1)
[2019-12-07 05:40] LABS: ABSOLUTE NEUTROPHILS 8.6 thou/uL (1.4-8.2); BASOPHILS 0.2 % (0.0-2.0); HEMATOCRIT 35.7 % (37.0-47.0); LYMPHOCYTES 12.6 % (24.0-44.0); MCHC 33.6 g/dL (28.0-37.0); MCV 92.2 fL (80.0-100.0); MONOCYTES 9.4 % (1.0-8.0); PLATELET COUNT 150 thou/uL (150-400); POLYS 77.8 % (36.0-66.0); RBC 3.87 mil/uL (4.20-5.00); RDW 14.2 % (10.5-14.5)
[2019-12-07] MEDS ORDERED: MORPHINE SULFAT15 MG PO (05:58)
[2019-12-07 06:41] VITALS: BP 143/83
== END 2019-12-07 06:42 | disposition home or self-care (01) ==
LOC: ER 04:36
PROVIDERS: Emergency Medicine
DX: G89.18 Other acute postprocedural pain (principal); M79.602 Pain in left arm; J45.909 Unspecified asthma, uncomplicated; F41.9 Anxiety disorder, unspecified; I10 Essential (primary) hypertension; E05.90 Thyrotoxicosis, unspecified without thyrotoxic crisis or storm; F17.210 Nicotine dependence, cigarettes, uncomplicated; Z87.42 Personal history of other diseases of the female genital tract; Z98.890 Other specified postprocedural states; Z98.51 Tubal ligation status; Z90.711 Acquired absence of uterus with remaining cervical stump; Z79.899 Other long term (current) drug therapy; Z88.6 Allergy status to analgesic agent; Z88.1 Allergy status to other antibiotic agents; Z88.0 Allergy status to penicillin; Z91.013 Allergy to seafood; Z88.8 Allergy status to other drugs, medicaments and biological substances

== ENCOUNTER 2020-01-14 20:09 | Emergency (ER) | payer OTHER ==
[~2020-01-14] VITALS: Ht 152.4 cm; Wt 54.4 kg
[~2020-01-14 20:09] MED LIST changes: +AMBIEN 10 MG TA10 MG PO; +MORPHINE SULFAT15 MG PO; +OXYCODONE PO; +VISTARIL 25 MG25 M1 PO
[2020-01-14 22:08] VITALS: BP 131/90
== END 2020-01-14 22:09 | disposition home or self-care (01) ==
LOC: ER 20:09
DX: M79.602 Pain in left arm (principal); M25.532 Pain in left wrist; R20.2 Paresthesia of skin; R20.0 Anesthesia of skin; I10 Essential (primary) hypertension; J45.909 Unspecified asthma, uncomplicated; F17.210 Nicotine dependence, cigarettes, uncomplicated; Z47.89 Encounter for other orthopedic aftercare; Z79.899 Other long term (current) drug therapy; Z88.6 Allergy status to analgesic agent; Z88.1 Allergy status to other antibiotic agents; Z91.013 Allergy to seafood

== ENCOUNTER 2020-09-09 13:44 | Emergency (ER) | payer OTHER ==
[~2020-09-09] VITALS: Ht 152.4 cm; Wt 56.7 kg
[2020-09-09 14:45] LABS: ABSOLUTE NEUTROPHILS 2.4 thou/uL (1.4-8.2); BASOPHILS 0.8 % (0.0-2.0); EOSINOPHILS 2.1 % (0.0-3.0); HEMATOCRIT 41.1 % (37.0-47.0); HEMOGLOBIN 13.4 gm/dL (12.0-15.0); LYMPHOCYTES 43.7 % (24.0-44.0); MCH 30.3 pg (26.0-34.0); MCHC 32.6 g/dL (28.0-37.0); MCV 92.9 fL (80.0-100.0); MONOCYTES 7.1 % (1.0-8.0); POLYS 46.3 % (36.0-66.0); RBC 4.42 mil/uL (4.20-5.00); RDW 13.4 % (10.5-14.5); WBC 5.2 thou/uL (4.0-11.0)
[2020-09-09 14:55] LABS: ANION GAP 8 mmol/L (7-16); BUN 12 mg/dL (7-18); CALCIUM 10.6 mg/dL (8.5-10.1); CHLORIDE 101 mmol/L (98-107); CO2 28 mmol/L (21-32); CREATININE 0.9 mg/dL (0.6-1.0); GLUCOSE 98 mg/dL (74-106); POTASSIUM 3.5 mmol/L (3.5-5.1); SODIUM 137 mmol/L (136-145)
[2020-09-09 15:04] LABS: TROPONIN-I <0.06 ng/mL (<0.06)
[2020-09-09 15:38] LABS: PLATELET COUNT 125 thou/uL (150-400); PLATELET ESTIMATE NORMAL
[2020-09-09 19:08] VITALS: BP 00/00
--- NOTE | 2020-09-10 07:19 | EKG ---
[address] [address] [employer] [place] [address] ELECTROCARDIOGRAM REPORT Name: MARSHA RAMIREZNARAYAN Murguia Room #: [facility] Tiffany#: [id number] Admission: 09/09/20 Attend Phys: Discharge: 09/09/20 Date of : 74 Report #: [id number] [facility] ED Test Date: 2020-09-09 Test Time: 13:50:49 Pat Name: WICHO RAMIREZ Department: Room: Gender: F Sewing Machinist: more : 1970 Requested By: Patrick Holliday Order Number: [id number] MD: Keenan Pavon Measurements Intervals [place] Rate: 111 P: 65 [place]: 169 QRS: 7 QRSD: 73 T: 40 QT: 327 QTc: 445 Interpretive Statements Sinus tachycardia Compared to ECG 07/19/2018 23:49:33 Sinus rhythm no longer present Electronically Signed On 09-10-2020 7:19:31 MULTIMEDIA EDUCATIONAL SPECIALIST by Keenan Pavon [email or web address] <ELECTRONICALLY SIGNED> By: Keenan Pavon MD, [facility] 09/10/20 0719 1350 1350 Keenan Pavon MD, FACC /EPI
== END 2020-09-09 19:21 | disposition home or self-care (01) ==
LOC: ER 13:44
PROVIDERS: Nurse Practitioner
DX: R07.89 Other chest pain (principal); J45.909 Unspecified asthma, uncomplicated; I10 Essential (primary) hypertension; E03.9 Hypothyroidism, unspecified; F17.210 Nicotine dependence, cigarettes, uncomplicated; Z88.6 Allergy status to analgesic agent; Z88.0 Allergy status to penicillin; Z88.1 Allergy status to other antibiotic agents; Z91.013 Allergy to seafood; Z79.899 Other long term (current) drug therapy; Z98.51 Tubal ligation status; Z90.710 Acquired absence of both cervix and uterus

== ENCOUNTER 2021-08-18 04:51 | Emergency (ER) | payer OTHER ==
[~2021-08-18] VITALS: Ht 152.4 cm; Wt 54.4 kg
[2021-08-18 04:54] VITALS: BP 143/95
[2021-08-18] MEDS ORDERED: ONDANSETRON HCL4 M2 PO (05:30)
[2021-08-18] MEDS ORDERED: MECLIZINE HCL25 M1 PO (05:30)
== END 2021-08-18 08:02 | disposition home or self-care (01) ==
LOC: ER 04:51
DX: U07.1 COVID-19 (principal); R42 Dizziness and giddiness; J45.909 Unspecified asthma, uncomplicated; F41.9 Anxiety disorder, unspecified; I10 Essential (primary) hypertension; F17.210 Nicotine dependence, cigarettes, uncomplicated; Z90.710 Acquired absence of both cervix and uterus; Z79.899 Other long term (current) drug therapy; Z98.51 Tubal ligation status; Z88.5 Allergy status to narcotic agent; Z88.0 Allergy status to penicillin; Z91.013 Allergy to seafood